=== PATIENT | female | born 1980 | race Caucasian/White ===

== ENCOUNTER 2018-05-10 22:08 | Inpatient (IN) | payer BC ==
--- NOTE | 2018-05-10 22:44 | HP ---
General Information - Reason for Visit active labor - General Information Maternal Age: 38 Grav: 4 Para: 1 SAB: 0 IEA: 2 Estimated Due Date: 05/14/18 Determined By: LMP Gestational Age in Weeks/Days: 39/3 Maternal Blood Type and Rh: A Positive - Results this Serology/RPR Result: Non-Reactive Rubella Result: Immune HBsAg Result: Negative HIV Result: Negative GBS Culture Result: Negative Past Medical History Delivery History: Hx Uncomplicated Vaginal Delivery Pertinent Past Medical History: See Records - arthritis Pertinent Past Surgical History: See Records - D&E Pertinent Family History: See Records - HTN, high chol, stroke, CVD, thyroid disease - Antepartal Records Antepartal Records: Reviewed, Complicated by: - AMA Review of Systems Constitutional: Uncomfortable CV Complaint: No Respiratory: Shortness of Breath: No Gastrointestinal: No Nausea/Vomiting, Normal Bowel Movement Genitourinary: Leaking Fluid, No Dysuria, No Bleeding Musculoskeletal: No Epigastric Pain, Contractions Neurological: No Headache, No Visual Changes Movement: Normal Exam Allergies/Adverse Reactions: Allergies peanut Allergy (Uncoded 10/27/15 06:53) Anaphylatic Shock T:97.5, P:79, R:16, O2:100, BP: 120/76 - Measurements Height: 5 ft 4 in Weight: 167 lb Weight in lbs: [phone] Body Mass Index (BMI): 28.6 Pre- Weight: 135 lb Weight Gained This : 32 lbs and 0 ozs - Exam Breast: Breast Exam Deferred CVA: No CVA Tenderness Extremities: No Edema Heart: Normal Rhythm/Heart Sounds HEENT: No Significant Findings Lungs: Clear Bilaterally Rectal: Rectal Exam Deferred Reflexes: DTR 2+ Thyroid: No Thyromegaly - Abdominal Exam Abdomen Exam: Fundal Height Consistent with Dates - Ultrasound/Biophysical Profile Ultrasound Status: Not Done Targeted Exam Findings Cervical Exam: 8cm Effacement: 100% Station: 0 Presenting Part: Vertex Membrane Status: Bulging Bleeding/Discharge: Bloody Show EFM Findings - External Monitor Findings Baseline Heart Rate: 125 External Monitor Findings: Accelerations Present, No Pattern of Variable or Late Decelerations, Variability Moderate, Baseline Stable Contractions: Regular, Strong, 45-90 Seconds Contraction Frequency: 2-3 Assessment/Plan - Assessment 38 y.o. 39w3d EGA. active labor - Plan Plan: Admit - Anticipate Vaginal Delivery - Date/Time of Admission Date of Admission: 05/10/18 Time of Admission: 22:30
[2018-05-10] MEDS ORDERED: Lidocaine 2% VISCOUS* 15 ML UDC ONE (23:36)
[2018-05-10] MEDS ORDERED: Glycerin ADULT SUPP PR PRN (23:57)
[2018-05-10] MEDS ORDERED: Acetaminophen TAB* 325 MG PO PRN (23:57)
[2018-05-10] MEDS ORDERED: Dibucaine 1% 28.35 GM TUBE PR PRN (23:57)
--- NOTE | 2018-05-10 23:57 | PROCNOTE ---
[facility] [place] [facility]: Delivery Note - Delivery A Date of : 05/10/18 Time of : 23:28 Score 1 Minute: 9 Score 5 Minutes: 9 Gestational Age in Weeks and Days at Delivery: 39 Weeks and 3 Days Delivery Method: Spontaneous Vaginal Labor: Spontaneous Amniotic Fluid: Clear Estimated Blood Loss: 200 Anesthesia/Analgesia: None Delivered By: Yenifer Garcia - Nursery Level of Nursery: Regular/Bedside - Perineum Perineal Injury Comment: bilateral labial lac with repair Perineal Repair: By Delivering Practioner - Events Delivery Events of Note: None Apply - Additional Delivery Notes Additional Delivery Notes: Pt presented to labor and delivery in active labor. After approx 1 hour pt progressed to 10cm, pt pushed ineffectively for 16 minutes and after 4 minutes of effective pushing delivered spontaneously a living male infant to maternal abdomen with maternal effort and pt repositioning. APGARS 9/9. After 2 minute delayed cord clamping a 3 vessel cord was clamped x2 and cut by FOB followed by spontaneous delivery of placenta. Hemostasis noted EBL 200ml. L and R labial laceration repaired with 4.0 vicryl and viscous lidocaine. Mother . Anticipate normal care.
[2018-05-11] MEDS ORDERED: OXYTOCIN* 10 UNITS/ML 1 ML VIAL IM ONE (00:27)
[2018-05-11] MEDS: Ibuprofen TAB* 600 MG PO PRN ×2 (01:13→15:57)
[2018-05-11] MEDS: Witch Hazel PAD* JAR TOPICAL PRN (01:17)
[2018-05-11] MEDS ORDERED: Ammonia Inhalant* 1 EA AMP ONE (01:27)
[2018-05-11] MEDS ORDERED: Docusate CAP* 100 MG ONE (02:50)
[2018-05-11 07:30] LABS: ABS Basophils 0.1 10^3/ul (0-0.2); ABS Eosinophils 0 10^3/ul (0-0.6); ABS Lymphocytes 1.8 10^3/ul (1.0-4.8); ABS Monocytes 1.1 10^3/ul (0-0.8); ABS Neutrophils 11.5 10^3/ul (1.5-7.7); ABS Nucleated RBC 0 10^3/ul; Eosinophil % 0.2 % (0-6); Hematocrit 34 % (35-47); Hemoglobin 11.7 g/dl (12.0-16.0); Lymphocyte % 12.2 % (25-47); Mean Corpuscular HGB Conc 35 g/dl (31-36); Mean Corpuscular Hemoglobin 33 pg (27-31); Mean Corpuscular Volume 94 fL (80-97); Nucleated Red Blood Cells % 0; Platelet Count 236 10^3/ul (150-450); Red Blood Count 3.57 10^6/ul (4.00-5.40); Red Cell Distribution Width 13 % (10.5-15); White Blood Count 14.4 10^3/ul (3.5-10.8)
[2018-05-11] MEDS ORDERED: Simethicone TAB* 80 MG TAB.CHEW PO SCH (08:30)
[2018-05-11] MEDS: Docusate CAP* 100 MG PO SCH ×3 (08:40→20:25)
[2018-05-11] MEDS ORDERED: Ferrous Gluconate TAB* 324 MG TAB PO SCH (09:00)
[2018-05-12] MEDS: Ibuprofen TAB* 600 MG PO PRN ×2 (00:04→08:23)
[2018-05-12 08:13] VITALS: BP 104/66
[2018-05-12] MEDS: Docusate CAP* 100 MG PO SCH (08:23)
[2018-05-12] MEDS: Witch Hazel PAD* JAR TOPICAL PRN (08:23)
== END 2018-05-12 13:02 | disposition home or self-care (01) | DRG 560 ==
LOC: MCHOBOUT 22:08 → MCHOB 22:33
PROVIDERS: ADMIT Midwife; ATTEND Midwife
PROC: 10E0XZZ Delivery of Products of Conception, External Approach (ICD-10-PCS; principal; 2018-05-10)
PROC: 10907ZC Drainage of Amniotic Fluid, Therapeutic from Products of Conception, Via Natural or Artificial Opening (ICD-10-PCS; 2018-05-10)
PROC: 0HQ9XZZ Repair Perineum Skin, External Approach (ICD-10-PCS; 2018-05-10)
DX: O75.89 Other specified complications of labor and delivery (principal); Z37.0 Single live birth; M19.90 Unspecified osteoarthritis, unspecified site; O70.0 First degree perineal laceration during delivery; Z3A.39 39 weeks gestation of pregnancy
CPT/HCPCS: 36415; 85025; A9270-GY; J2590

== ENCOUNTER 2024-04-16 22:35 | Observation (INO) ==
[2024-04-16] MEDS: Iodixanol (CONTRAST) 320 MG/ML 100 ML SDV IV ONE (23:21)
[2024-04-17 00:24] LABS: ABS Eosinophils 0.1 10^3/uL (0.0-0.5); ABS Lymphocytes 1.8 10^3/uL (1.0-4.8); ABS Monocytes 0.7 10^3/uL (0.0-0.9); ABS Neutrophils 5.6 10^3/uL (1.5-7.6); ABS Nucleated RBC 0.01 10^3/ul; Eosinophil % 1.5 %; Hematocrit 37.6 % (35-45); Hemoglobin 12.8 g/dL (11.5-14.3); Lymphocyte % 21.8 %; Mean Corpuscular Hemoglobin 31.5 pg (27-33); Mean Corpuscular Hgb Conc 34.1 g/dL (31-36); Mean Corpuscular Volume 92.2 fL (80-97); Mean Platelet Volume 6.9 fL (7.5-11.2); Nucleated Red Blood Cells % 0.1 %/100WBC (0.0-0.8); Platelet Count 307 10^3/uL (150-450); Red Blood Count 4.08 10^6/uL (3.63-4.92); Red Cell Distribution Width 12.3 % (12-17); White Blood Count 8.3 10^3/uL (3.8-11.8)
[2024-04-17 00:41] LABS: Activated Partial Thrombo Time 31.7 seconds (26.0-38.0); INR 1.04 (0.85-1.14)
[2024-04-17 01:05] LABS: ALT 14 U/L (7-52); AST 12 U/L (13-39); Albumin 4.2 g/dL (3.2-5.2); Albumin/Globulin Ratio 1.8 (1-3); Alkaline Phosphatase 29 U/L (35-149); Anion Gap 6 mmol/L (2-16); Blood Urea Nitrogen 15 mg/dL (6-24); CO2 Carbon Dioxide 26 mmol/L (22-32); Calcium 9.1 mg/dL (8.6-10.3); Chloride 104 mmol/L (101-111); Cholesterol 141 mg/dL; Creatinine, Serum 0.67 mg/dL (0.51-0.95); Direct Bilirubin 0.1 mg/dL (0.03-0.18); Globulin 2.3 g/dL (2-4); Glucose 105 mg/dL (70-100); HDL Cholesterol 51.6 mg/dL; Indirect Bilirubin 0.4 mg/dL (0.3-1.0); LDL Cholesterol 62 mg/dL; Potassium 3.6 mmol/L (3.5-5.0); Sodium 136 mmol/L (135-145); Total Bilirubin 0.5 mg/dL (0.2-1.0); Total Protein 6.5 g/dL (6.4-8.9); Triglycerides 139 mg/dL; eGFR CKD-EPI 111.8 (>60)
[2024-04-17 01:09] LABS: Urine Appearance Clear; Urine Bilirubin Negative (Negative); Urine Blood Negative (Negative); Urine Color Colorless; Urine Glucose Negative (Negative); Urine Ketones Negative (Negative); Urine Nitrite Negative (Negative); Urine Protein Negative (Negative); Urine Urobilinogen Negative (Negative); Urine pH 7.5 (5.0-8.0)
[2024-04-17 01:12] LABS: HCG Pregnancy < 0.60 mIU/mL
[2024-04-17 01:31] LABS: Urine Bacteria Absent /HPF (Absent); Urine Red Blood Cell Trace(0-2/hpf) /HPF (0-Trace); Urine Squamous Epithelial Cell Present /HPF (Absent); Urine White Blood Cell Absent /HPF (0-Trace)
[2024-04-17 02:22] LABS: Magnesium 1.9 mg/dL (1.9-2.7)
[2024-04-17] MEDS ORDERED: Sulfur Hexaflouride MICROSPHR 25 MG VIAL IV PRN (03:20)
[2024-04-17] MEDS ORDERED: ORPHENADRINE CITRATE 100 MG PO PRN (03:21)
[2024-04-17] MEDS: Potassium Chlor 20 meq TAB.ER PO ONE (04:30)
[2024-04-17] MEDS: Magnesium Sulfate IV 1GM/100ML 1 GM/100 ML BAG IV ONE (04:30)
[2024-04-17 18:27] VITALS: BP 102/62
== END 2024-04-17 19:15 | disposition home or self-care (01) ==
LOC: EDHOLD 22:35 → ED 22:35 → SUATTDRO 04-17 01:55 → MEDTELE 04-17 04:24
PROVIDERS: ADMIT Internal Medicine; ATTEND Hospitalist